=== PATIENT | female | born 1990 | race Caucasian/White ===

== ENCOUNTER 2019-05-31 03:03 | Emergency (ER) | payer BC, SELFPAY ==
[2019-05-31 03:08] VITALS: BP 148/98; PULSE 69; RESP 16; TEMP 36.7; O2SAT 97
[2019-05-31] MEDS: Balanced Salt Solution 15 ML BTL OP (03:19)
[2019-05-31] MEDS: Tetracaine 0.5% 4 ML BTL OP (03:19)
[2019-05-31] MEDS: Fluorescein STRIPS 100/BOX 1 MG OP (03:19)
--- NOTE | 2019-05-31 03:23 | W.ED.GENAD ---
Discharge Plan Disposition Patient Disposition: HOME Condition: Stable Discharge Details Chief Complaint: EyeProblem Clinical Impression: Abrasion, corneal Primary Care Provider: Ruth Kay ED Provider: Sony Erickson Home Meds and New Rx's Prescriptions: Continued norgestimate-ethinyl estradiol [Ortho Tri-Cyclen (28)] 0.18/0.215/0.25 mg-35 mcg (28) tablet 1 tab PO DAILY Qty: 84 RF: 4 omega-3 fatty acids [Fish Oil Concentrate] 1,000 mg capsule 1,000 mg PO DAILY RF: 0 loratadine 10 mg tablet 10 mg PO DAILY PRNRF: 0 multivitamin [Daily Multi-Vitamin] 1 EACH tablet 1 ea PO DAILY Qty: 3 RF: 0 magnesium oxide 250 MG tablet 250 mg PO DAILY RF: 0 escitalopram oxalate 10 mg tablet 10 mg PO DAILY Qty: 90 RF: 4 sumatriptan succinate 25 mg tablet 25 mg PO .COMPLEX Qty: 10 RF: 0 lorazepam 1 mg tablet 0.5 - 1 mg PO BID MDD 2mg PRN (Reason: anxiety) Qty: 10 RF: 0 Discharge Instructions Instructions: Corneal Abrasion (ED) Additional Instructions: if symptoms aren't improving by Friday follow up with [facility] if you feel your pain is worsening, have vision changes or have fevers return to the emergency department Medical Decision Making 29 yo female comes in with left eye discomfort. She states she woke up with tearing in her eye and some discomfort. She denies vision changes trauma, n/v, fevers and doesn't wear contacts. She has 20/20 visions in both eyes and has no periorbital swelling, perrl, eomi with no deep eye pain, iop 11 in both eyes and right eye conjunctiva is diffusely ingected and left eye conjunctiva is normal. She had relief of symptoms with tetracaine. On flourescein stain has small 11mm corneal abrasion on the conjunctiva at the 4 oclock position. No evidence of hyphema or iritis. Will place on erythromycin ointment and advised f/u with [facility] if not better by Friday and return to the ED if worsening Differential Diagnosis Differential Diagnosis: corneal abrasion, conjunctivitis HPI General Mode of arrival: ambulatory. Date/Time Provider Initiated Documentation: 05/31/19 03:10. Limitations to Documentation: no limitations. Information obtained by: patient. History of Present Illness 29 year old F presents to the emergency department with the chief complaint of right eye tearing, described as moderate, Quality is described as burning, and is localized to the eyes and right. Patient reports no radiation. Patient started experiencing this hour(s) (2) and it has been constant. No relieving factors improve symptom(s), No exacerbating factors reported . Patient did receive the following treatments prior to arrival, none Related Data Home Medications Medication Instructions Recorded Confirmed multivitamin [Daily Multi-Vitamin] 1 ea PO DAILY #3 05/18/15 05/03/19 magnesium oxide 250 mg PO DAILY 11/12/17 05/03/19 norgestimate-ethinyl estradiol 1 tab PO DAILY #84 tab 04/03/18 05/31/19 omega-3 fatty acids 1,000 mg 1,000 mg PO DAILY 04/03/18 05/03/19 capsule loratadine 10 mg tablet 10 mg PO DAILY PRN tab-cap 08/10/18 05/31/19 escitalopram oxalate 10 mg tablet 10 mg PO DAILY #90 tab-cap 10/04/18 05/31/19 sumatriptan succinate 25 mg tablet 25 mg PO .COMPLEX #10 tab 04/23/19 05/31/19 lorazepam 1 mg tablet 0.5 - 1 mg PO BID PRN #10 tab MDD 05/03/19 05/31/19 2mg Previous Rx's Medication Instructions Recorded norgestimate-ethinyl estradiol 1 tab PO DAILY #84 tab 04/03/18 escitalopram oxalate 10 mg tablet 10 mg PO DAILY #90 tab-cap 10/04/18 sumatriptan succinate 25 mg tablet 25 mg PO .COMPLEX #10 tab 04/23/19 lorazepam 1 mg tablet 0.5 - 1 mg PO BID PRN #10 tab MDD 05/03/19 2mg Allergies Allergy/AdvReac Type Severity Reaction Status Date / Time No Known Drug Allergies Allergy Verified 05/04/19 12:31 General Stated Complaint: EyeProblem JASON: 4 Review of Systems All systems reviewed & are unremarkable except as noted in HPI and below Constitutional Constitutional: Denies chills, Denies fever(s) and Denies weakness ENT Ears, Nose, Mouth, and Throat: Denies change in voice Cardiovascular Cardiovascular: Denies chest pain and Denies dyspnea Respiratory Respiratory: Denies cough and Denies dyspnea Gastrointestinal Gastrointestinal: Denies abdominal pain, Denies nausea and Denies vomiting Musculoskeletal Musculoskeletal: Denies joint swelling Neurologic Neurologic: Denies weakness [facility] Medical History (Updated 05/12/19 @ 06:58 by Jewels Blum NP) Abnormal Pap smear of cervix (Inactive) 2013 ASCUS, neg HPV 2015 LGSIL, no HPV results. Colposcopy negative 2015 Negative Pap but HPV positive 2016 Negative Pap Negative HPV Abscess (Acute) Right labial Generalized anxiety disorder (Chronic) Major depressive disorder (Chronic) Obsessive compulsive disorder Raynauds syndrome Surgical History (Updated 03/26/19 @ 07:31 by Demetrius Jenkins) Bladder Surgery (Inactive) at 1yrs old. Doesn't know why she had this H/O wisdom tooth extraction (Inactive) Family History Mother Essential hypertension Father Diabetes Essential hypertension Depression Brother No problems noted. Brother No problems noted. Maternal Grandfather No problems noted. Maternal Grandmother , at 67 of [place] Myocardial infarction Heart disease Alzheimer disease Paternal Grandfather , at 64 of [place] Myocardial infarction Heart disease Paternal Grandmother Diabetes Essential hypertension Sister No problems noted. 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 Pets and animals: Yes Pets and animals: dog(s) Duration: 45-60 minutes/day Frequency: 5-6 times per week Sarah/Christian: No preference Special sarah needs: No Seatbelt use: always Do you feel safe at home: Yes Do you feel safe in your relationship?: Yes Exam Const General: no acute distress Orientation: alert HENMT Head: normal to inspection Ears: external ears normal General nose exam: external nose normal Mouth: moist mucous membranes Eyes Alignment and Position: alignment normal Neck Neck: normal visual inspection Resp Effort & Inspection: normal respiratory effort and able to speak in complete sentences Cardio Rate: regular rate Skin General skin exam: no rashes or lesions noted Neuro General: alert and oriented x3 Extrem General: normal to inspection Psych Mental Status: mental status grossly normal Course Vital Signs Vital signs: Vital Signs Temperature 36.7 C 05/31/19 03:08 Pulse 69 05/31/19 03:08 Respiratory Rate 16 05/31/19 03:08 Blood Pressure 148/98 H 05/31/19 03:08 Pulse Oximetry 97 05/31/19 03:08 Temperature 36.7 C 05/31/19 03:08 Temperature Source Skin 05/31/19 03:08 Pulse 69 05/31/19 03:08 Respiratory Rate 16 05/31/19 03:08 Respiratory Effort 05/31/19 03:09 Blood Pressure 148/98 H 05/31/19 03:08 Blood Pressure Position Sitting 05/31/19 03:08 Pulse Oximetry 97 05/31/19 03:08 Pain Level 10 05/31/19 03:08
[2019-05-31] MEDS: Erythromycin Ophth Oint 3.5 GM TUBE OP (03:45)
== END 2019-05-31 03:40 | disposition home or self-care (01) ==
PROVIDERS: Emergency Provider Emergency Medicine; PCP Nurse Practitioner Family
DX: S05.01XA Injury of conjunctiva and corneal abrasion without foreign body, right eye, initial encounter (principal); X58.XXXA Exposure to other specified factors, initial encounter
CPT/HCPCS: 99283

== ENCOUNTER 2019-12-24 13:20 | Emergency (ER) | payer SELFPAY ==
[2019-12-24 13:28] VITALS: BP 137/91; PULSE 60; RESP 18; TEMP 36.9; O2SAT 98
--- NOTE | 2019-12-24 13:45 | DI.RAD_ITS ---
EXAM: XR HAND RT COMPLETE CLINICAL HISTORY: Dog bite, R/O fracture/ Foreign body TECHNIQUE: COMPARISON: No exams were available for comparison FINDINGS: Three views were obtained. No fracture or foreign body identified. IMPRESSION:
--- NOTE | 2019-12-24 13:54 | ED.GENADUL_ITS ---
Discharge Plan Disposition Patient Disposition: HOME Condition: Stable Discharge Details Chief Complaint: AnimalBite Clinical Impression: Dog bite of multiple sites of right hand and fingers Primary Care Provider: Ruth Kay ED Provider: Sandra Parra Home Meds and New Rx's Prescriptions: New amoxicillin-pot clavulanate [Augmentin] 875-125 mg tablet 1 tab PO BID 10 Days Qty: 20 RF: 0 Continued omega-3 fatty acids [Fish Oil Concentrate] 1,000 mg capsule 1,000 mg PO DAILY RF: 0 loratadine 10 mg tablet 10 mg PO DAILY PRNRF: 0 multivitamin [Daily Multi-Vitamin] 1 EACH tablet 1 ea PO DAILY Qty: 3 RF: 0 magnesium oxide 250 MG tablet 250 mg PO DAILY RF: 0 sumatriptan succinate 25 mg tablet 25 mg PO .COMPLEX Qty: 10 RF: 0 lorazepam 1 mg tablet 0.5 - 1 mg PO BID MDD 2mg PRN (Reason: anxiety) Qty: 10 RF: 0 norgestimate-ethinyl estradiol [Ortho Tri-Cyclen (28)] 0.18/0.215/0.25 mg-35 mcg (28) tablet 1 tab PO DAILY Qty: 84 RF: 4 escitalopram oxalate 10 mg tablet 10 mg PO DAILY Qty: 90 RF: 4 Discharge Instructions Instructions: Animal Bite (ED), Steristrips (ED) Additional Instructions: Follow up with primary care provider in 3-5 days. Return to ED sooner if any worsening or concerns. Increase oral fluids. Return immediately to the ED for increased red streaks, swelling, fever chills increased pain to hand. Or inability to bend your fingers. Take medications as directed. Please take Tylenol or Ibuprofen with food every 4-6 hours as needed for pain and swelling. Steri-Strips will fall off in about 4 to 6 days. No soaking can wash hand under running soap and water after 12-24 hrs. Keep it clean and dry every day. Referrals: Ruth Kay NP [Primary Care Provider] - Gibran Hunt MD [ [facility] STAFF PHYSICIAN] - (Follow-up in 1 week if needed if any complications or problems moving your hand.) Discharge Data Discharge Date/Time-TO BE ENTERED AT DEPARTURE: 12/24/19 15:20 Medical Decision Making Imaging ordered to rule out fracture or retained foreign body. Wound care ordered soak and Steri-Strips. Will not close the puncture wounds due to increased risk for infection. At this time I am concerned for potential for development Tenosynovitisin future due to the location of puncture wounds. We will give IM ceftriaxone 500 mg here in department and start patient on Augmentin. EXAM: XR HAND RT COMPLETE CLINICAL HISTORY: Dog bite, R/O fracture/ Foreign body TECHNIQUE: COMPARISON: No exams were available for comparison FINDINGS: Three views were obtained. No fracture or foreign body identified. Wound care was performed in department by RN/tech staff, hand was soaked in Betadine and normal saline, Steri-Strips applied and dry Kerlix dressing. Discussed home care and wound care with patient, verbalized understanding. Patient will be placed on Augmentin twice daily x10 days. Patient was given ceftriaxone 500 mg IM prior to discharge. Animal control animal bite form filled out and faxed. Given patient strict return instructions, verbalized understanding. Instructed to watch for signs of infection including increased redness, swelling, fever. Patient discharged home. This text was generated using [employer] dictation system, please disregard any oddities of phrase or misspellings. HPI General Mode of arrival: ambulatory . Date/Time Provider Initiated Documentation: 12/24/19 13:22 . Limitations to Documentation: no limitations . Information obtained by: patient . HPI Narrative: 29-year-old female presents to the ED with chief complaint of animal bite. 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 She is up-to-date on her tetanus shot. She did not take any medications prior to arrival. This occurred around noon. She does have multiple puncture wounds noted 1 puncture wound measuring approximately 0.5 cm noted to the dorsum of her right hand in between the middle and ring finger, additional puncture wound noted to the palmar surface also in between the middle and ring finger and a small scrape noted to her palmar surface of her distal right ring finger. No surrounding erythema, there is some swelling. She has full range of motion noted to her wrist. Related Data Home Medications Medication Instructions Recorded Confirmed multivitamin [Daily Multi-Vitamin] 1 ea PO DAILY #3 05/18/15 05/03/19 magnesium oxide 250 mg PO DAILY 11/12/17 05/03/19 omega-3 fatty acids 1,000 mg 1,000 mg PO DAILY 04/03/18 05/03/19 capsule loratadine 10 mg tablet 10 mg PO DAILY PRN tab-cap 08/10/18 05/31/19 sumatriptan succinate 25 mg tablet 25 mg PO .COMPLEX #10 tab 04/23/19 05/31/19 lorazepam 1 mg tablet 0.5 - 1 mg PO BID PRN #10 tab MDD 05/03/19 05/31/19 2mg norgestimate-ethinyl estradiol 1 tab PO DAILY #84 tab 06/08/19 escitalopram oxalate 10 mg tablet 10 mg PO DAILY #90 tab-cap 10/11/19 amoxicillin-pot clavulanate 1 tab PO BID 10 Days #20 tab 12/24/19 [Augmentin] Previous Rx's Medication Instructions Recorded sumatriptan succinate 25 mg tablet 25 mg PO .COMPLEX #10 tab 04/23/19 lorazepam 1 mg tablet 0.5 - 1 mg PO BID PRN #10 tab MDD 05/03/19 2mg norgestimate-ethinyl estradiol 1 tab PO DAILY #84 tab 06/08/19 escitalopram oxalate 10 mg tablet 10 mg PO DAILY #90 tab-cap 10/11/19 amoxicillin-pot clavulanate 1 tab PO BID 10 Days #20 tab 12/24/19 [Augmentin] Allergies Allergy/AdvReac Type Severity Reaction Status Date / Time No Known Drug Allergies Allergy Verified 12/24/19 13:33 General Stated Complaint: AnimalBite JASON: 4 Review of Systems Narrative: Constitutional: Negative for weight loss, alert and oriented, well groomed, normal body habitus, appears comfortable. HEENT: Denies trauma, headaches, blurry vision, nasal discharge, sore throat, trouble swallowing. Chest: Denies chest pain, palpitations, irregular rhythm, hypertension. Respiratory: Denies Shortness of breath, cough, hemoptysis. Extremities: Right hand dog bite puncture wounds noted. Neuro: Denies dizziness, blurry vision, weakness, syncope, headache or facial numbness. Hematologic: Denies easy bruising, intolerance to heat or cold, hair loss. [facility] Medical History Abnormal Pap smear of cervix (Inactive) 2014 ASCUS, neg HPV 2015 LGSIL, no HPV results. Colposcopy negative 2016 Negative Pap but HPV positive 2017 Negative Pap Negative HPV Abscess (Acute) Right labial Generalized anxiety disorder (Chronic) Major depressive disorder (Chronic) Obsessive compulsive disorder Raynauds syndrome Surgical History Bladder Surgery (Inactive) at 1yrs old. Doesn't know why she had this H/O wisdom tooth extraction (Inactive) Family History Mother Essential hypertension Father Diabetes Essential hypertension Depression Brother No problems noted. Brother No problems noted. Maternal Grandfather No problems noted. Maternal Grandmother , at 67 of [place] Myocardial infarction Heart disease Alzheimer disease Paternal Grandfather , at 64 of [place] Myocardial infarction Heart disease Paternal Grandmother Diabetes Essential hypertension Sister No problems noted. 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 Appears stated age. Normal body habitus. Head: Normocephalic, no trauma. Eyes: Pupils PERRLA, Red reflex noted, EOM's intact. Eyelids symmetrical without lesions, discharge, or swelling. ENT: Bilateral TM's WNL, External ear normal to inspection, no mastoid TTP, swelling, or erythema, Nasal turbinates WNL, no nasal discharge. Normal dentition, Posterior pharynx WNL, no exudate. Chest: RRR, Normal S1, S2, distal pulses intact. Resp: Lungs clear to auscultation bilaterally, no wheezes, rales, or rhonchi. Musculoskeletal: Normal gait, 5/5 strength to all four extremities. Does have full range of motion flexion and extension of all 5 digits. Skin: Multiple puncture wounds noted, biggest noted to the dorsum of her right hand measuring approximately 0.5 cm, there is another additional puncture wound noted to the palmar surface of her right hand measuring approximately 4 mm and a small scrape noted to the distal portion of her right ring finger. Small venous ooze noted . capillary refill less than 2 sec. Neurologic: Cranial nerves II-XII intact. Alert and oriented x 3. DTR's intact. Hematologic/Lymphatic: No ecchymosis, no lymphadenopathy. Course Vital Signs Vital signs: Vital Signs Temperature 36.9 C 12/24/19 13:28 Pulse 60 12/24/19 13:28 Respiratory Rate 18 12/24/19 13:28 Blood Pressure 137/91 H 12/24/19 13:28 Pulse Oximetry 98 12/24/19 13:28 Temperature 36.9 C 12/24/19 13:28 Temperature Source Skin 12/24/19 13:28 Pulse 60 12/24/19 13:28 Respiratory Rate 18 12/24/19 13:28 Blood Pressure 137/91 H 12/24/19 13:28 Blood Pressure Position Sitting 12/24/19 13:28 Pulse Oximetry 98 12/24/19 13:28 Oxygen Delivery Method Room Air 12/24/19 13:28 Oxygen Flow Rate 0 12/24/19 13:28
--- NOTE | 2019-12-24 14:15 | NUR.NOTE ---
faxed animal bite report to Brayan Williamson in [place] 12/24/2019 Nursing Note:
[2019-12-24] MEDS: cefTRIAXone 500 MG VIAL IM (14:34)
[2019-12-24] MEDS: Amoxicillin 875/Clav. 125 TAB PO (14:35)
[2019-12-24] MEDS: Ibuprofen 600 MG TAB PO (14:35)
== END 2019-12-24 15:20 | disposition home or self-care (01) ==
PROVIDERS: Emergency Provider Registered Nurse Emergency; PCP Nurse Practitioner Family
DX: S61.451A Open bite of right hand, initial encounter (principal); W54.0XXA Bitten by dog, initial encounter
CPT/HCPCS: 96372; 99284; 73130; J0696

== ENCOUNTER 2020-04-07 04:11 | Outpatient (CLI) | payer SELFPAY ==
--- NOTE | 2020-04-07 07:15 | DI.US_ITS ---
EXAM: US PELVIS TRANSVAGINAL CLINICAL HISTORY: Suspect ovarian cyst,rlq pain, r10.31 TECHNIQUE: Ultrasound performed using standard protocol. COMPARISON: US ABDOMEN ULTRASOUND (P) from 06/27/2017 FINDINGS: Pelvic ultrasound was performed transabdominally and transvaginally. Uterus measures 77 x 29 x 54 mi llimeters. Endometrial stripe is about 4 millimeters thickness and appears homogeneous. The ovaries have a normal follicular appearance except for a 35 millimeter in diameter simple cyst of the right ovary, presumably representing a functional cyst. There is unremarkable Doppler evaluation of the ov david. Limited scanning of the kidneys is unremarkable. No free fluid cul-de-sac. IMPRESSION: 35 millimeter simple cyst, presumably a functional cysts, of the right ovary. Examination is otherwi se unremarkable. DATA REPOSITORY:
== END 2020-04-07 04:31 ==
PROVIDERS: PCP Nurse Practitioner Family; Visit Provider Nurse Practitioner Family
DX: N83.291 Other ovarian cyst, right side (principal)
CPT/HCPCS: 76856

== ENCOUNTER 2020-07-27 19:04 | Emergency (ER) | payer SELFPAY ==
[2020-07-27 19:14] VITALS: BP 120/69; PULSE 77; RESP 18; TEMP 36.7; O2SAT 97
--- NOTE | 2020-07-27 19:22 | W.ED.GENAD ---
Discharge Plan Disposition Patient Disposition: HOME Condition: Stable Discharge Details Clinical Impression: Dog bite of left hand Primary Care Provider: Ruth Kay ED Provider: Mely Rosas Home Meds and New Rx's Prescriptions: New amoxicillin-pot clavulanate [Augmentin] 875-125 mg tablet 1 tab PO BID Qty: 14 RF: 0 No Action loratadine 10 mg tablet 10 mg PO DAILY PRNRF: 0 multivitamin [Daily Multi-Vitamin] 1 EACH tablet 1 ea PO DAILY Qty: 3 RF: 0 magnesium oxide 250 MG tablet 250 mg PO DAILY RF: 0 sumatriptan succinate 25 mg tablet 25 mg PO .COMPLEX Qty: 10 RF: 0 lorazepam 1 mg tablet 0.5 - 1 mg PO BID MDD 2mg PRN (Reason: anxiety) Qty: 10 RF: 0 escitalopram oxalate 10 mg tablet 10 mg PO DAILY Qty: 90 RF: 4 norgestimate-ethinyl estradiol [Ortho Tri-Cyclen (28)] 0.18/0.215/0.25 mg-35 mcg (28) tablet 1 tab PO DAILY Qty: 84 RF: 4 Discharge Instructions Instructions: Animal Bite (ED) Additional Instructions: wash hand 2 times daily and as needed, use warm soapy water, rinse well and pat dry completely. apply bacitracin and dry dressing to protect. use ibuprofen 600 mg 4 times daily with food can add acetaminophen 650 mg time times daily for breakthrough for pain if needed. report signs of infection immediately Referrals: Gibran Hunt MD [ [facility] STAFF PHYSICIAN] - Discharge Data Discharge Date/Time-TO BE ENTERED AT DEPARTURE: 07/27/20 20:55 Medical Decision Making Tetanus will be updated Report to animal control per protocol Wounds cleansed by nursing bacitracin dry dressing applied X-ray left hand to evaluate for fractures Ibuprofen 800 mg orally given PROCEDURE INFORMATION: Exam: XR Left Hand Exam date and time: 07/27/2020 7:24 PM Age: 30 years old Clinical indication: Injury or trauma; Other: Dog bite; Hand; Left; Injury date: 07/27/20; Injury details: Tried to separate two dogs fighting over food TECHNIQUE: Imaging protocol: XR Left hand. Views: 3 or more views. Total images: 3 COMPARISON: No relevant prior studies available. FINDINGS: Bones/joints: No fractures. No blastic or lytic lesions. No articular erosive changes. Soft tissues: No periostitis or osteolysis. Soft tissue air projecting in the thenar eminence consistent with local soft tissue injury. No radiopaque foreign bodies. Other findings: Carpal relationships are normal. Distal radioulnar alignment is normal. IMPRESSION: 1. No fractures or foreign bodies. 2. Soft tissue laceration in the thenar eminence. Medical Records Medical records reviewed: Yes I reviewed the patient's medical records. HPI General Mode of arrival: ambulatory. Date/Time Provider Initiated Documentation: 07/27/20 19:08. Limitations to Documentation: no limitations. Information obtained by: patient. HPI Narrative: Patient presents with injury to her left hand while she was trying to separate her 2 dogs. She has multiple puncture wounds on her left hand bleeding is controlled on arrival Tetanus last updated in 2008 No other injury States dogs have updated immunizations Related Data Home Medications Medication Instructions Recorded Confirmed multivitamin [Daily Multi-Vitamin] 1 ea PO DAILY #3 05/18/15 07/27/20 magnesium oxide 250 mg PO DAILY 11/12/17 07/27/20 loratadine 10 mg tablet 10 mg PO DAILY PRN tab-cap 08/10/18 07/27/20 sumatriptan succinate 25 mg tablet 25 mg PO .COMPLEX #10 tab 04/23/19 07/27/20 lorazepam 1 mg tablet 0.5 - 1 mg PO BID PRN #10 tab MDD 05/03/19 07/27/20 2mg escitalopram oxalate 10 mg tablet 10 mg PO DAILY #90 tab-cap 10/11/19 07/27/20 norgestimate-ethinyl estradiol 1 tab PO DAILY #84 tab 06/14/20 07/27/20 0.18 mg/0.215mg/0.25mg-35 mcg()tablet amoxicillin-pot clavulanate 1 tab PO BID #14 tab 07/27/20 [Augmentin] Previous Rx's Medication Instructions Recorded sumatriptan succinate 25 mg tablet 25 mg PO .COMPLEX #10 tab 04/23/19 lorazepam 1 mg tablet 0.5 - 1 mg PO BID PRN #10 tab MDD 05/03/19 2mg escitalopram oxalate 10 mg tablet 10 mg PO DAILY #90 tab-cap 10/11/19 norgestimate-ethinyl estradiol 1 tab PO DAILY #84 tab 06/14/20 0.18 mg/0.215mg/0.25mg-35 mcg(28)tablet amoxicillin-pot clavulanate 1 tab PO BID #14 tab 07/27/20 [Augmentin] Allergies Allergy/AdvReac Type Severity Reaction Status Date / Time No Known Drug Allergies Allergy Verified 07/27/20 19:20 General Stated Complaint: AnimalBite JASON: 4 Review of Systems All systems reviewed & are unremarkable except as noted in HPI and below Musculoskeletal Musculoskeletal: Denies deformity, Reports arthralgias and Reports joint swelling Integumentary/Breasts Skin/Breast: Reports lesions (Puncture wound) Hematologic/Lymphatic Hematologic/Lymphatic: Denies easy bleeding and Denies easy bruising [facility] Medical History (Updated 07/27/20 @ 19:57 by Mely Rosas NP) Abnormal Pap smear of cervix 2013 ASCUS, neg HPV 2015 LGSIL, no HPV results. Colposcopy negative 2015 Negative Pap but HPV positive 2016 Negative Pap Negative HPV Abscess Right labial Generalized anxiety disorder Major depressive disorder Obsessive compulsive disorder Raynauds syndrome Surgical History Bladder Surgery at 1yrs old. Doesn't know why she had this H/O wisdom tooth extraction Family History Mother Essential hypertension Father Diabetes Essential hypertension Depression Brother No problems noted. Brother No problems noted. Maternal Grandfather No problems noted. Maternal Grandmother , at 67 of [place] Myocardial infarction Heart disease Alzheimer disease Paternal Grandfather , at 64 of [place] Myocardial infarction Heart disease Paternal Grandmother Diabetes Essential hypertension Sister No problems noted. 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 Pets and animals: Yes Pets and animals: dog(s) Duration: 45-60 minutes/day Frequency: 5-6 times per week Sarah/Congregational: No preference Special sarah needs: No Seatbelt use: always Do you feel safe at home: Yes Do you feel safe in your relationship?: Yes Exam Const General: cooperative and acute distress Nutritional Appearance: overweight Orientation: alert, awake and oriented x3 HENMT Head: normal to inspection, normocephalic and atraumatic Skin Lesions: lesion noted (Multiple puncture wounds to left hand) and other (left and right wrist) Rashes: no rashes Neuro General: patient alert, patient awake and patient oriented x3 Psych Appearance: grossly normal Affect: anxious affect and other (Crying anxious, states she was hyperventilating) Attitude: cooperative Course Vital Signs Vital signs: Vital Signs Temperature 36.7 C 07/27/20 19:14 Pulse 77 07/27/20 19:14 Respiratory Rate 18 07/27/20 19:14 Blood Pressure 120/69 07/27/20 19:14 Pulse Oximetry 97 07/27/20 19:14 Temperature 36.7 C 07/27/20 19:14 Temperature Source Skin 07/27/20 19:14 Pulse 77 07/27/20 19:14 Respiratory Rate 18 07/27/20 19:14 Respiratory Effort Non-Labored 07/27/20 19:16 Blood Pressure 120/69 07/27/20 19:14 Blood Pressure Position Sitting 07/27/20 19:14 Pulse Oximetry 97 07/27/20 19:14 Pain Level 7 07/27/20 19:14
[2020-07-27] MEDS: Ibuprofen 800 MG TAB PO (19:34)
[2020-07-27] MEDS: Bacitracin 30 GM TUBE TP (19:34)
--- NOTE | 2020-07-27 19:51 | DI.RAD_ITS ---
EXAM: XR HAND LT COMPLETE CLINICAL HISTORY: Traumatic injury. TECHNIQUE: 2D digital imaging was performed. COMPARISON: CR XR HAND RT COMPLETE from 12/24/2019 FINDINGS: There is soft tissue laceration in the soft tissues between the thumb and 2nd-index finger. There is no fracture. No radiopaque foreign body. No radiographic evidence of osteomyelitis. Bone density is normal. IMPRESSION: DATA REPOSITORY: RADIATION DOSE DELIVERED:
--- NOTE | 2020-07-27 20:33 | DI.VRAD_ITS ---
PROCEDURE INFORMATION: Exam: XR Left Hand Exam date and time: 07/27/2020 7:24 PM Age: 30 years old Clinical indication: Injury or trauma; Other: Dog bite; Hand; Left; Injury date: 07/27/20; Injury details: Tried to separate two dogs fighting over food TECHNIQUE: Imaging protocol: XR Left hand. Views: 3 or more views. Total images: 3 COMPARISON: No relevant prior studies available. FINDINGS: Bones/joints: No fractures. No blastic or lytic lesions. No articular erosive changes. Soft tissues: No periostitis or osteolysis. Soft tissue air projecting in the thenar eminence consistent with local soft tissue injury. No radiopaque foreign bodies. Other findings: Carpal relationships are normal. Distal radioulnar alignment is normal. IMPRESSION: 1. No fractures or foreign bodies. 2. Soft tissue laceration in the thenar eminence. Dictated and Authenticated by: Tomás Olivo MD. Ordering:FEDE Boone MD
[2020-07-27] MEDS: Amox. 875/Clav. 125, 2 TABS/BTL 1 TAB PO (20:42)
[2020-07-27 20:46] VITALS: BP 133/88; PULSE 66; RESP 16; O2SAT 97
--- NOTE | 2020-07-28 08:28 | NUR.NOTE ---
Animal bite reported to [facility] Officer Brayan Williamson. [phone]. Faxed to [facility], .Nursing Note:
== END 2020-07-27 20:55 | disposition home or self-care (01) ==
PROVIDERS: Emergency Provider Nurse Practitioner Acute Care; PCP Nurse Practitioner Family
DX: S61.452A Open bite of left hand, initial encounter (principal); S61.551A Open bite of right wrist, initial encounter; W54.0XXA Bitten by dog, initial encounter
CPT/HCPCS: 90471; 99284; 73130; 99283

== ENCOUNTER 2020-07-29 09:38 | Emergency (ER) | payer SELFPAY ==
[2020-07-29 09:41] VITALS: BP 158/88; PULSE 67; TEMP 36.6; O2SAT 98
--- NOTE | 2020-07-29 09:57 | ED.GENADUL_ITS ---
Discharge Plan Disposition Patient Disposition: HOME Condition: Stable Discharge Details Clinical Impression: Visit for wound check Primary Care Provider: Ruth Kay ED Provider: Sandra Parra Home Meds and New Rx's Prescriptions: New clindamycin HCl 300 mg capsule 300 mg PO BID 7 Days Qty: 14 RF: 0 Continued loratadine 10 mg tablet 10 mg PO DAILY PRNRF: 0 magnesium oxide 250 MG tablet 250 mg PO DAILY RF: 0 sumatriptan succinate 25 mg tablet 25 mg PO .COMPLEX Qty: 10 RF: 0 escitalopram oxalate 10 mg tablet 10 mg PO DAILY Qty: 90 RF: 4 norgestimate-ethinyl estradiol [Ortho Tri-Cyclen (28)] 0.18/0.215/0.25 mg-35 mcg (28) tablet 1 tab PO DAILY Qty: 84 RF: 4 amoxicillin-pot clavulanate [Augmentin] 875-125 mg tablet 1 tab PO BID Qty: 14 RF: 0 Discharge Instructions Instructions: Animal Bite (ED), Acute Wounds (ED) Additional Instructions: Keep wounds clean and dry. Do not apply antibiotic ointment. Do not place any more covering such as second skin onto the wounds. No soaking. Give the antibiotics couple more days to begin working. Take clindamycin and Augmentin as prescribed. Call and make an appointment with orthopedic clinic on Friday. Return to the ED for spreading redness, trouble bending your fingers or straightening your fingers, fever, chills or any worsening. Follow up with primary care provider in 3-5 days. Return to ED sooner if any worsening or concerns. Increase oral fluids. Please take Tylenol or Ibuprofen with food every 4-6 hours as needed for pain and swelling. Stand Alone Forms: Work Release Referrals: Ruth Kay NP [Primary Care Provider] - Lakhwinder Harman MD [ [facility] - Medical Decision Making hich he has been taking as directed. She reports this morning noticing some increased erythema, and some pus she has been expressed from a laceration noted to the left ring finger dorsal area. She reports keeping the wounds covered with bandages and she also got some second skin placed on some of the lacerations. She does have some swelling noted. She is able to extend her fingers and flex them. No fever or chills. Will francisca edges of erythema, perform wound care, and give Clindamycin on top of previously prescribed augmentin. Did discuss IM or IV injection of additional antibiotic, patient became very anxious and lightheaded with speaking about this. At This time we will keep with oral antibiotics. I did stress the importance of making a follow-up appointment with orthopedics, I did discuss home care including keeping wounds clean and dry. I did discuss with her regarding not applying bacitracin ointment and or new skin. Patient verbalized understanding. I also did discuss eating yogurt daily and/or taking a probiotic while on antibiotics. HPI General Mode of arrival: ambulatory . Date/Time Provider Initiated Documentation: 07/29/20 09:38 . Limitations to Documentation: no limitations . Information obtained by: patient . HPI Narrative: 30-year-old female presents to the ED for a dog bite recheck. Patient was seen here 48 hours ago for multiple lacerations of her left hand due to a dog bite. She was placed on Augmentin at that time which he has been taking as directed. She reports this morning noticing some increased erythema, and some pus she has been expressed from a laceration noted to the left ring finger dorsal area. She reports keeping the wounds covered with bandages and she also got some second skin placed on some of the lacerations. She does have some swelling noted. She is able to extend her fingers and flex them. No fever or chills. Related Data Home Medications Medication Instructions Recorded Confirmed magnesium oxide 250 mg PO DAILY 11/12/17 07/29/20 loratadine 10 mg tablet 10 mg PO DAILY PRN tab-cap 08/10/18 07/29/20 sumatriptan succinate 25 mg tablet 25 mg PO .COMPLEX #10 tab 04/23/19 07/29/20 escitalopram oxalate 10 mg tablet 10 mg PO DAILY #90 tab-cap 10/11/19 07/29/20 norgestimate-ethinyl estradiol 1 tab PO DAILY #84 tab 06/14/20 07/29/20 0.18 mg/0.215mg/0.25mg-35 mcg(28)tablet amoxicillin-pot clavulanate 1 tab PO BID #14 tab 07/27/20 07/29/20 [Augmentin] clindamycin HCl 300 mg PO BID 7 Days #14 cap 07/29/20 Previous Rx's Medication Instructions Recorded sumatriptan succinate 25 mg tablet 25 mg PO .COMPLEX #10 tab 04/23/19 escitalopram oxalate 10 mg tablet 10 mg PO DAILY #90 tab-cap 10/11/19 norgestimate-ethinyl estradiol 1 tab PO DAILY #84 tab 06/14/20 0.18 mg/0.215mg/0.25mg-35 mcg(28)tablet amoxicillin-pot clavulanate 1 tab PO BID #14 tab 07/27/20 [Augmentin] clindamycin HCl 300 mg PO BID 7 Days #14 cap 07/29/20 Allergies Allergy/AdvReac Type Severity Reaction Status Date / Time No Known Drug Allergies Allergy Verified 07/29/20 09:48 General Stated Complaint: Cellulitis JASON: 3 Review of Systems All systems reviewed & are unremarkable except as noted in HPI and below Integumentary/Breasts Skin/Breast: Reports erythema, Reports skin swelling and Reports wounds [facility] Medical History (Updated 07/29/20 @ 10:10 by Sandra Parra) Abnormal Pap smear of cervix 2013 ASCUS, neg HPV 2015 LGSIL, no HPV results. Colposcopy negative 2015 Negative Pap but HPV positive 2016 Negative Pap Negative HPV Abscess Right labial Generalized anxiety disorder Major depressive disorder Obsessive compulsive disorder Raynauds syndrome Surgical History Bladder Surgery at 1yrs old. Doesn't know why she had this H/O wisdom tooth extraction Family History Mother Essential hypertension Father Diabetes Essential hypertension Depression Brother No problems noted. Brother No problems noted. Maternal Grandfather No problems noted. Maternal Grandmother , at 67 of [place] Myocardial infarction Heart disease Alzheimer disease Paternal Grandfather , at 64 of [place] Myocardial infarction Heart disease Paternal Grandmother Diabetes Essential hypertension Sister No problems noted. 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 Laceration with some purulent drainage 2. Erythema 3. Laceration, no drainage 4. Erythema Course Vital Signs Vital signs: Vital Signs Temperature 36.6 C 07/29/20 09:41 Pulse 67 07/29/20 09:41 Blood Pressure 158/88 H 07/29/20 09:41 Pulse Oximetry 98 07/29/20 09:41 Temperature 36.6 C 07/29/20 09:41 Temperature Source Temporal Artery Scan 07/29/20 09:41 Pulse 67 07/29/20 09:41 Respiratory Effort Non-Labored 07/29/20 09:46 Blood Pressure 158/88 H 07/29/20 09:41 Blood Pressure Position Sitting 07/29/20 09:41 Pulse Oximetry 98 07/29/20 09:41 Oxygen Delivery Method Room Air 07/29/20 09:41 Oxygen Flow Rate 0 07/29/20 09:41 Pain Level 6 07/29/20 09:41
[2020-07-29] MEDS: Clindamycin 300 MG CAP PO (10:20)
== END 2020-07-29 10:37 | disposition home or self-care (01) ==
PROVIDERS: Emergency Provider Registered Nurse Emergency; PCP Nurse Practitioner Family
DX: S61.452A Open bite of left hand, initial encounter (principal); W54.0XXA Bitten by dog, initial encounter; Z48.01 Encounter for change or removal of surgical wound dressing

== ENCOUNTER 2021-01-01 07:55 | Outpatient (REF) | payer MEDICAID, SELFPAY ==
[2021-01-02 08:52] LABS: COVID-19 RT-PCR UVMMC Result Negative (Negative)
== END 2021-01-01 07:56 | disposition home or self-care (01) ==
LOC: LBN 07:55
PROVIDERS: PCP Nurse Practitioner Family; Visit Provider Physician Assistant
DX: Z20.822 Contact with and (suspected) exposure to COVID-19 (principal); J02.9 Acute pharyngitis, unspecified
CPT/HCPCS: U0003

== ENCOUNTER 2021-01-06 19:14 | Emergency (ER) | payer MEDICAID, SELFPAY ==
--- NOTE | 2021-01-06 19:15 | RT.EKG_ITS ---
APPROVED REPORT Exam: Resting ECG Reason for Exam: chest pain Patient Location: E HR:79 bpm ECG Measurements Heart Rate 79 AXIS VA 162 P 14 QRSd 82 QRS 27 QT 385 T 9 QTc 443 Conclusion Sinus rhythm...normal P axis, V-rate 60- 99 Low voltage, precordial leads...precordial leads <1.0mV Normal [place] No Acute ST Changes I have reviewed and interpreted ECG and agree with software generated interpretation.
[2021-01-06 19:34] VITALS: BP 113/75; PULSE 71; RESP 16; TEMP 36.6; O2SAT 96
--- NOTE | 2021-01-06 19:34 | ED.GENADUL_ITS ---
Discharge Plan Disposition Patient Disposition: AGAINST MEDICAL ADVICE Condition: Stable Discharge Details Clinical Impression: Arm pain, left, Generalized anxiety disorder, Chest pain Primary Care Provider: Ruth Kay ED Provider: Kalyan Uriarte [place] Meds and New Rx's Prescriptions: Continued loratadine 10 mg tablet 10 mg PO DAILY PRNRF: 0 escitalopram oxalate 10 mg tablet 10 mg PO DAILY Qty: 90 RF: 4 norgestimate-ethinyl estradiol [Ortho Tri-Cyclen (28)] 0.18/0.215/0.25 mg-35 mcg (28) tablet 1 tab PO DAILY Qty: 84 RF: 4 Discharge Instructions Instructions: Chest Pain (ED), Anxiety (ED) Additional Instructions: Your EKG and chest x-ray look fine. As we discussed, I am unable to risk stratify or advise you regarding the etiology of symptoms which could include cardiac or pulmonary problems resulting in harm, disability, . If your symptoms worsen or change you should return to the ED. You should follow-up with primary care for reevaluation next week. Referrals: Ruth Kay, NORA [Primary Care Provider] - Discharge Data Discharge Date/Time-TO BE ENTERED AT DEPARTURE: 01/06/21 21:50 Medical Decision Making Patient presenting with left upper extremity/left chest discomfort which is since resolved. Quite anxious and thinks that may be part of the problem. EKG without any acute ST changes. She has no cardiac risk factors. She has no PE risk factors other than being on control. We discussed work-up including labs and x-ray which she agreed to. Unfortunately, patient has needle phobia and despite p.o. Ativan and reassurance patient unable to tolerate IV start or even lab draw. Chest x-ray was obtained and is unremarkable. Had further discussion regarding trying more Ativan or other medication. Patient reports that she is she is getting more anxious, stress, work up and would like to just go home. Patient aware that without further evaluation no ability to risk stratify will relate any type of etiology to her symptoms. She understands risk involved if this does sheet turner to be cardiac or pulmonary in nature. She does agree to follow-up with primary care. She also agrees to return if change or worsening symptoms. She is signed out AGAINST MEDICAL ADVICE. ECG Data Attestation: I personally reviewed and interpreted this ECG (s) as follows: Prior ECG tracings: not available for review Interpretation: see EKG HPI General Mode of arrival: ambulatory . Date/Time Provider Initiated Documentation: 01/06/21 19:34 . Limitations to Documentation: no limitations . Information obtained by: patient, RN notes reviewed and old records reviewed . HPI Narrative: Patient presents to ER with complaint of funny feeling in the left upper extremity this afternoon when coming home from work. Would not really describe it as pain. Subsequently developed some left chest discomfort. Has history of anxiety and became more and more concerned about the possibility of heart attack. This increased her anxiety which seemed to increase her symptoms. She denies having diaphoresis, lightheadedness, nausea, vomiting, shortness of breath. She currently has no symptoms here in the emergency department. She has no risk factors for cardiac disease. She denies leg pain or leg swelling. She is on control. No prior history of PE or DVT. Related Data Home Medications Medication Instructions Recorded Confirmed loratadine 10 mg tablet 10 mg PO DAILY PRN tab-cap 08/10/18 01/06/21 escitalopram oxalate 10 mg tablet 10 mg PO DAILY #90 tab-cap 10/11/19 01/06/21 norgestimate-ethinyl estradiol 1 tab PO DAILY #84 tab 06/14/20 01/06/21 0.18 mg/0.215mg/0.25mg-35 mcg(28)tablet Previous Rx's Medication Instructions Recorded escitalopram oxalate 10 mg tablet 10 mg PO DAILY #90 tab-cap 10/11/19 norgestimate-ethinyl estradiol 1 tab PO DAILY #84 tab 06/14/20 0.18 mg/0.215mg/0.25mg-35 mcg(28)tablet Allergies Allergy/AdvReac Type Severity Reaction Status Date / Time No Known Drug Allergies Allergy Verified 01/06/21 19:39 General JASON: 3 Review of Systems Narrative: As documented in HPI otherwise negative as below. Const: no fever, chills, weakness Resp: no cough, SOB, pleuritic pain CV: no diaphoresis, edema, syncope GI: no abdominal pain, nausea, vomiting, diarrhea Neuro: no headache, numbness, focal weakness, confusion [facility] Medical History (Updated 01/06/21 @ 21:34 by Kalyan Uriarte MD) Abnormal Pap smear of cervix 2013 ASCUS, neg HPV 2015 LGSIL, no HPV results. Colposcopy negative 2016 Negative Pap but HPV positive 2017 Negative Pap Negative HPV Abscess Right labial Generalized anxiety disorder Major depressive disorder Obsessive compulsive disorder Raynauds syndrome Surgical History Bladder Surgery at 1yrs old. Doesn't know why she had this H/O wisdom tooth extraction Family History Mother Essential hypertension Father Diabetes Essential hypertension Depression Brother No problems noted. Brother No problems noted. Maternal Grandfather No problems noted. Maternal Grandmother , at 67 of [place] Myocardial infarction Heart disease Alzheimer disease Paternal Grandfather , at 64 of [place] Myocardial infarction Heart disease Paternal Grandmother Diabetes Essential hypertension Sister No problems noted. 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 HEENT: NC/AT. Normal facial exam. Eyes: Normal conjunctiva and sclera. Neck: Supple. Trachea midline. Lungs: Normal respiratory effort. Lungs are clear. Cor: RRR without murmur/gallop. Good radial pulses. GI: Soft. NT/ND. No guarding or rebound. Neuro: A+O x 3. Normal speech, mentation, gait. Cranial nerves II - XII grossly intact. No gross motor or sensory deficit. Ext: No C/C/E. No calf tenderness. Skin: Warm and dry without rash.
--- NOTE | 2021-01-06 19:45 | DI.RAD_ITS ---
Exam(s) XR CHEST 2V PA LATERAL EXAM: XR CHEST 2V PA LATERAL CLINICAL HISTORY: CP TECHNIQUE: 2D digital imaging was performed. COMPARISON: No exams were available for comparison FINDINGS: MEDIASTINUM: Normal. HEART: Normal. PULMONARY VASCULATURE: Normal. LUNGS: Clear. PLEURAL SPACE: No pleural effusion or pneumothorax. BONE:Within normal limits for the patient's age. OTHER FINDINGS:Normal. IMPRESSION: No acute pulmonary findings. DATA REPOSITORY: RADIATION DOSE DELIVERED:
[2021-01-06] MEDS: LORazepam 1 MG TAB 2 MG PO (20:53)
--- NOTE | 2021-01-06 20:57 | DI.VRAD_ITS ---
PROCEDURE INFORMATION: Exam: XR Chest Exam date and time: 01/06/2021 7:48 PM Age: 30 years old Clinical indication: Pain; Chest pressure TECHNIQUE: Imaging protocol: XR of the chest. Views: 2 views. COMPARISON: CT RENAL COLIC WO CONTRAST 06/15/2017 6:07 PM FINDINGS: Lungs: Unremarkable. No consolidation. Pleural spaces: Unremarkable. No pleural effusion. No pneumothorax. Heart/Mediastinum: Unremarkable. No cardiomegaly. Bones/joints: Unremarkable. IMPRESSION: No acute findings. Dictated and Authenticated by: Sony Negrete MD. Ordering:JAQUELIN Biggs MD
[2021-01-06 21:39] VITALS: BP 134/82; PULSE 64; RESP 16; TEMP 36.4; O2SAT 98
== END 2021-01-06 21:50 | disposition left against medical advice (07) ==
PROVIDERS: Emergency Provider Emergency Medicine; PCP Nurse Practitioner Family
DX: R07.89 Other chest pain (principal); M79.602 Pain in left arm; F41.1 Generalized anxiety disorder; Z53.29 Procedure and treatment not carried out because of patient's decision for other reasons
CPT/HCPCS: 80053; 93005; 99285; 71046; 83735; 84484; 85025; 85379; 93010; 99284

== ENCOUNTER 2021-02-28 12:03 | Outpatient (REF) | payer MEDICAID, SELFPAY ==
[2021-03-01 14:21] LABS: COVID-19 RT-PCR UVMMC Result Negative (Negative)
== END 2021-02-28 12:04 | disposition home or self-care (01) ==
LOC: LBN 12:03
PROVIDERS: PCP Nurse Practitioner Family; Visit Provider Physician Assistant
DX: Z20.822 Contact with and (suspected) exposure to COVID-19 (principal)
CPT/HCPCS: U0003

== ENCOUNTER 2021-03-15 17:23 | Outpatient (REF) | payer MEDICAID, SELFPAY ==
[2021-03-17 17:19] LABS: COVID-19 RT-PCR UVMMC Result Negative (Negative)
== END 2021-03-15 17:24 | disposition home or self-care (01) ==
LOC: LBN 17:23
PROVIDERS: PCP Nurse Practitioner Family; Visit Provider Physician Assistant
DX: Z20.822 Contact with and (suspected) exposure to COVID-19 (principal)
CPT/HCPCS: U0003

== ENCOUNTER 2021-06-25 13:04 | Outpatient (REF) | payer MEDICAID, SELFPAY ==
[2021-06-27 09:52] LABS: COVID-19 RT-PCR UVMMC Result Negative (Negative)
== END 2021-06-25 13:05 | disposition home or self-care (01) ==
LOC: LBN 13:04
PROVIDERS: PCP Nurse Practitioner Family; Visit Provider Nurse Practitioner Family
DX: Z20.822 Contact with and (suspected) exposure to COVID-19 (principal)
CPT/HCPCS: U0003

== ENCOUNTER 2021-07-09 19:25 | Outpatient (REF) | payer MEDICAID, SELFPAY ==
[2021-07-11 15:46] LABS: COVID-19 RT-PCR UVMMC Result Negative (Negative)
== END 2021-07-09 19:26 | disposition home or self-care (01) ==
LOC: LBN 19:25
PROVIDERS: PCP Nurse Practitioner Family; Visit Provider Nurse Practitioner Family
DX: Z20.822 Contact with and (suspected) exposure to COVID-19 (principal)
CPT/HCPCS: U0003

== ENCOUNTER 2024-09-08 04:32 | Outpatient (CLI) | payer BC, SELFPAY ==
[2024-09-08 14:14] LABS: Hemoglobin A1C 5.3 % (<5.7)
[2024-09-08 14:41] LABS: ALT 25 U/L (14-59); AST 21 U/L (15-37); Albumin 3.9 g/dL (3.4-5.0); Alkaline Phosphatase 75 U/L (46-116); Anion Gap 7.8 mmol/L (3-11); BUN 15 mg/dL (7-18); Bilirubin, Total 0.3 mg/dL (0.2-1.0); CO2 29.2 mmol/L (21.0-32.0); CREATININE 0.9 mg/dL (0.55-1.02); Calculated LDL 114 mg/dL (<100); Chloride 105 mmol/L (98-107); Cholesterol 201 mg/dL (<200); Glucose 89 mg/dL (74-106); HDL Cholesterol 52 mg/dL (>or=50); Potassium 4.6 mmol/L (3.5-5.1); Sodium 142 mmol/L (136-145); TSH (W/Ref FT4) 1.67 uIU/mL (0.36-3.74); Total Protein 6.9 g/dL (6.4-8.2); Triglyceride 176 mg/dL (<150)
[2024-09-09 09:37] LABS: HBs Antibody, Quant 47.6 mIU/mL (See Note); Hep B Surface Ab Positive (See Note); Hepatitis B Core Antibody Negative (Negative); Hepatitis B Surface Antigen Negative (Negative)
== END 2024-09-08 04:33 | disposition home or self-care (01) ==
LOC: LBO 04:32
PROVIDERS: PCP Nurse Practitioner Family; Visit Provider Nurse Practitioner Family
DX: E78.5 Hyperlipidemia, unspecified (principal); O24.419 Gestational diabetes mellitus in pregnancy, unspecified control; Z11.59 Encounter for screening for other viral diseases
CPT/HCPCS: 36415; 80053; 80061; 86704; 86706; 87340; 83036; 84443